=== PATIENT | male | born 1990 | race Caucasian/White ===

== ENCOUNTER → 2017-02-04 | Outpatient (CLI) | payer SELFPAY | LOC: RAD 15:40 | DX: M79.641 Pain in right hand (principal); S62.306A Unspecified fracture of fifth metacarpal bone, right hand, initial encounter for closed fracture; X58.XXXA Exposure to other specified factors, initial encounter ==

== ENCOUNTER 2018-05-11 13:46 | Emergency (ER) | payer SELFPAY ==
[2018-05-11 13:53] VITALS: BP 133/88
[2018-05-11 14:56] LABS: HEMATOCRIT 48.6 % (42.0-52.0); HEMOGLOBIN 16.7 g/dL (13.5-18.0); MEAN CELL VOLUME 90 fl (78-100); MEAN CORPUSCULAR HEMOGLOBIN 31 pg (27-31); MEAN CORPUSCULAR HGB CONC 34 g/dL (33-37); MEAN PLATELET VOLUME 9.9 fl (7.4-10.4); PLATELET COUNT 303 K/mm3 (130-400); RED BLOOD COUNT 5.38 M/mm3 (4.20-5.60); RED CELL DISTRIBUTION WIDTH 12.7 % (11.5-14.5)
[2018-05-11 15:17] LABS: WHITE BLOOD COUNT 26.4 K/mm3 (4.8-10.8)
[2018-05-11] MEDS ORDERED: BACTRIM DS TAB1 EACH PO (15:37)
[2018-05-11] MEDS ORDERED: NORCO 325 MG-51 TA1 PO (15:38)
[2018-05-11 16:13] LABS: LYMPHOCYTE 14 % (20-51); MONOCYTE 10 % (3-10); NEUTROPHILS 76 % (42-75)
== END 2018-05-11 15:40 | disposition home or self-care (01) ==
LOC: ED 13:46
PROVIDERS: Nurse Practitioner Primary Care
DX: T81.44XA Sepsis following a procedure, initial encounter (principal); A41.9 Sepsis, unspecified organism; M71.521 Other bursitis, not elsewhere classified, right elbow; M19.221 Secondary osteoarthritis, right elbow

== ENCOUNTER → 2020-10-17 | Outpatient (CLI) | payer BC ==
[~2020-10-17] MED LIST: BACTRIM DS TAB1 EACH PO; NORCO 325 MG-51 TA1 PO
[2020-10-17 11:43] LABS: EOS # 0.2 (0.04-0.40); EOS % 1.6 % (0.0-4.0); HEMATOCRIT 49.6 % (42.0-52.0); HEMOGLOBIN 16.7 g/dL (13.5-18.0); LYMPH# 3.3 (1.50-4.00); MEAN CELL VOLUME 91 fl (78-100); MEAN CORPUSCULAR HEMOGLOBIN 31 pg (27-31); MEAN CORPUSCULAR HGB CONC 34 g/dL (33-37); MEAN PLATELET VOLUME 9.3 fl (7.4-10.4); MONO # 0.9 (0.20-0.80); NEU # 8.9 (1.40-6.50); PLATELET COUNT 350 K/mm3 (130-400); RED BLOOD COUNT 5.45 M/mm3 (4.20-5.60); WHITE BLOOD COUNT 13.3 K/mm3 (4.8-10.8)
== END ==
LOC: LAB 11:29
PROVIDERS: Physician Assistant
DX: F32.9 Major depressive disorder, single episode, unspecified (principal)

== ENCOUNTER → 2021-05-25 | Outpatient (CLI) | payer BC | LOC: RAD 11:14 | DX: R07.89 Other chest pain (principal) ==

== ENCOUNTER → 2023-12-13 | Outpatient (CLI) | payer SELFPAY ==
[2024-02-02 10:56] LABS: GRAM STAIN AMS
== END ==
LOC: LAB 08:00
PROVIDERS: Physician Assistant
DX: L02.91 Cutaneous abscess, unspecified (principal)